=== PATIENT | female | born 1980 | race Hispanic/Latino ===

== ENCOUNTER 2021-05-30 14:21 | Inpatient (IN) | payer SELFPAY ==
[~2021-05-30 14:21] MED LIST: Iopamidol-370 76% 500 ML 1 ML ONE
[2021-05-30] MEDS ORDERED: niCARdipine 20MG In NaCl 20 MG/200 ML BAG ONE (14:30)
[2021-05-30] MEDS ORDERED: Propofol 1,000 MG/100 ML VIAL IV ONE (14:34)
[2021-05-30] MEDS ORDERED: Fentanyl 100 MCG/2 ML VIAL ONE ×2 (14:51→15:01)
[2021-05-30] MEDS ORDERED: diphenhydrAMINE 50 MG/ML VIAL IVP PRN (15:02)
[2021-05-30] MEDS ORDERED: Ondansetron PF 4 MG/2 ML Vial IVP PRN (15:02)
[2021-05-30] MEDS ORDERED: Rocuronium Bromide 10 MG/ML (10ML VIAL) ONE (15:08)
[2021-05-30 16:49] LABS: Base Excess (BEa) -1.9 mEq/L (-2.0 to +3.0); Calcium, Ionized (arterial) 1.05 mmol/L (1.12-1.30); Carboxyhemoglobin (COHb) 0.3 gm% (0.0-3.0); Hemoglobin (Hb) 12.9 g/dL (12.0-16.0); O2 Tension (PaO2), arterial 214.6 mmHg (80.0-100.0); Potassium - ABG Lab 2.83 mmol/L (3.70-5.30); pH, Arterial 7.53 (7.35-7.45)
[2021-05-30 16:51] LABS: ALV-art Gradient 41.725 mmHg (0-20); CO2 Tension 23.1 mmHg (35.0-45.0); Puncture Site RRA
[2021-05-30] MEDS ORDERED: Ventilator Sedation Protocol 1 EACH FS SCH (17:00)
[2021-05-30] MEDS ORDERED: Electrolyte Replacement Protocol 1 EACH IVPB PRN (17:00)
[2021-05-30] MEDS ORDERED: fentaNYL Citrate/PF 2,000 MCG in Sodium Chloride 0.9% 60 ML IV PRN (17:03)
[2021-05-30] MEDS ORDERED: Lorazepam 2 MG/ML VIAL SLOW IVP PRN ×2 (17:04→19:15)
[2021-05-30] MEDS ORDERED: Lorazepam 2 MG/ML VIAL ONE (17:05)
[2021-05-30] MEDS ORDERED: Fentanyl CADD 100 ML ONE (17:06)
[2021-05-30] MEDS ORDERED: Propofol 1,000 MG/100 ML VIAL IV SCH (17:15)
[2021-05-30] MEDS: Sodium Chloride 0.9% 1,000 ML IV SCH (18:00)
[2021-05-30 19:15] LABS: Hemoglobin 12.8 g/dL (12.0-16.0); Mean Corpuscular HGB CONC 35.2 g/dL (32.0-36.0); Mean Corpuscular Hemoglobin 31.1 pg (27.0-31.0); Mean Corpuscular Volume 88.4 fL (78.0-98.0); Mean Platelet Volume 10.3 fL (7.4-10.4); Platelet Count 143 thou/uL (130-400); RBC Distribution Width 12.6 % (11.5-14.5); Red Blood Cell (RBC) Count 4.11 mill/uL (4.20-5.40); White Blood Cell (WBC) Count 23.6 thou/uL (4.8-10.8)
[2021-05-30] MEDS ORDERED: Fentanyl CADD 100 ML IV SCH (19:15)
[2021-05-30] MEDS ORDERED: DISCONTINUE PREVIOUS NARCOTIC PAIN MEDICATIONS AND BENZODIAZEPINES FS SCH (19:15)
[2021-05-30] MEDS ORDERED: Fentanyl BOLUS 250 ML IVPB PRN (19:15)
[2021-05-30] MEDS ORDERED: Morphine 2 MG/ML VIAL SLOW IVP PRN (19:15)
[2021-05-30] MEDS ORDERED: Propofol BOLUS 1,000 MG/100 ML VIAL IV PRN (19:15)
[2021-05-30] MEDS ORDERED: Morphine 4 MG/ML VIAL SLOW IVP PRN (19:16)
[2021-05-30 19:26] LABS: PTT 25.3 sec (22.9-36.1); Prothrombin Time 13.4 sec (12.0-14.7)
[2021-05-30 19:29] LABS: Band 16 % (5-11); Lymphocytes 6 % (21-51); MDiff Complete? YES; Monocytes 14 % (0-10); Neutrophil 64 % (42-75); Platelet Morphology Comment Appears Adequate; RBC Morphology Normal
[2021-05-30] MEDS ORDERED: Aminocaproic Acid 5 GM in Sodium Chloride 0.9% 250 ML 250 ML IV SCH (19:30)
[2021-05-30] MEDS ORDERED: niCARdipine 25 MG in Sodium Chloride 0.9% 250 ML 250 ML IVPB SCH (19:30)
[2021-05-30 19:31] LABS: ALT (SGPT) 21 U/L (8-55); AST (SGOT) 26 U/L (5-34); Albumin 4.3 g/dL (3.5-5.0); Alkaline Phosphatase 70 U/L (40-110); Anion Gap 18 mmol/L (10-20); BUN (Urea Nitrogen) 7 mg/dL (7.0-18.7); Bilirubin, Total 0.7 mg/dL (0.2-1.2); Calc. Creatinine Clearance 123 mL/min (70-130); Calcium 8.8 mg/dL (7.8-10.44); Carbon Dioxide 18 mmol/L (22-29); Chloride 104 mmol/L (98-107); Globulin 2.9 g/dL (2.4-3.5); Glucose 136 mg/dL (70-105); Potassium 3.7 mmol/L (3.5-5.1); Protein, Total 7.2 g/dL (6.0-8.3); Sodium 136 mmol/L (136-145)
[2021-05-30] MEDS: Famotidine/PF 20 mg/2ml Vial SLOW IVP SCH (20:15)
[2021-05-30] MEDS: Propofol 1,000 MG/100 ML VIAL IV PRN (20:32)
[2021-05-30] MEDS: niMODipine 30 MG CAP PO SCH (20:33)
[2021-05-30] MEDS: Aminocaproic Acid 5 GM in Sodium Chloride 0.9% 250 ML 250 ML IV SCH (23:07)
[2021-05-31] MEDS: niMODipine 30 MG CAP PO SCH ×3 (00:50→08:42)
[2021-05-31] MEDS: Propofol 1,000 MG/100 ML VIAL IV PRN ×2 (02:01→08:41)
[2021-05-31] MEDS: Aminocaproic Acid 5 GM in Sodium Chloride 0.9% 250 ML 250 ML IV SCH ×2 (03:50→08:41)
[2021-05-31] MEDS: Sodium Chloride 0.9% 1,000 ML IV SCH (04:10)
[2021-05-31 04:24] LABS: Phosphorus 2.8 mg/dL (2.3-4.7)
[2021-05-31 04:25] LABS: Hemoglobin 11.4 g/dL (12.0-16.0); Mean Corpuscular HGB CONC 35.3 g/dL (32.0-36.0); Mean Corpuscular Hemoglobin 31.3 pg (27.0-31.0); Mean Corpuscular Volume 88.5 fL (78.0-98.0); Platelet Count 128 thou/uL (130-400); RBC Distribution Width 12.7 % (11.5-14.5); Red Blood Cell (RBC) Count 3.64 mill/uL (4.20-5.40); White Blood Cell (WBC) Count 15.4 thou/uL (4.8-10.8)
[2021-05-31 04:27] LABS: ALT (SGPT) 17 U/L (8-55); AST (SGOT) 18 U/L (5-34); Albumin 3.7 g/dL (3.5-5.0); Alkaline Phosphatase 62 U/L (40-110); Anion Gap 15 mmol/L (10-20); BUN (Urea Nitrogen) 6 mg/dL (7.0-18.7); Bilirubin, Total 0.7 mg/dL (0.2-1.2); Calc. Creatinine Clearance 125 mL/min (70-130); Calcium 7.9 mg/dL (7.8-10.44); Carbon Dioxide 20 mmol/L (22-29); Chloride 100 mmol/L (98-107); Globulin 2.5 g/dL (2.4-3.5); Glucose 142 mg/dL (70-105); Magnesium 1.5 mg/dL (1.6-2.6); Potassium 3.9 mmol/L (3.5-5.1); Protein, Total 6.2 g/dL (6.0-8.3); Sodium 131 mmol/L (136-145)
[2021-05-31 05:01] LABS: Band 13 % (5-11); Lymphocytes 6 % (21-51); MDiff Complete? YES; Monocytes 5 % (0-10); Neutrophil 76 % (42-75)
[2021-05-31] MEDS ORDERED: Magnesium 2 GM/50 ML 2 GM in Premix Bag 1 BAG IVPB SCH (05:15)
[2021-05-31 05:18] VITALS: BMI 25.5
[2021-05-31 07:22] VITALS: TEMP 99.5
[2021-05-31 07:49] VITALS: BP 102/58
[2021-05-31 07:56] LABS: Actual Bicarbonate (HCO3a) 23.1 mEq/L (22-28); Base Excess (BEa) -0.7 mEq/L (-2.0 to +3.0); CO2 Tension 34.9 mmHg (35.0-45.0); Calcium, Ionized (arterial) 1.09 mmol/L (1.12-1.30); Carboxyhemoglobin (COHb) 0.3 gm% (0.0-3.0); Potassium - ABG Lab 3.21 mmol/L (3.70-5.30); Puncture Site RRA; pH, Arterial 7.44 (7.35-7.45)
[2021-05-31 07:57] LABS: ALV-art Gradient 75.575 mmHg (0-20)
[2021-05-31] MEDS: Famotidine/PF 20 mg/2ml Vial SLOW IVP SCH (08:27)
[2021-06-02] MEDS ORDERED: FLU VACC QS2021-22(6MOS UP)/PF 60 MCG/0.5 ML SYRINGE IM ONE (09:00)
== END 2021-05-31 11:20 | disposition short-term general hospital (02) | DRG 65 ==
LOC: ERS 14:21 → CCU 15:02
PROVIDERS: ADMIT Neurological Surgery; ATTEND Neurological Surgery
PROC: 0BH17EZ Insertion of Endotracheal Airway into Trachea, Via Natural or Artificial Opening (ICD-10-PCS; principal; 2021-05-30)
PROC: 5A1935Z Respiratory Ventilation, Less than 24 Consecutive Hours (ICD-10-PCS; 2021-05-30)
DX: I60.7 Nontraumatic subarachnoid hemorrhage from unspecified intracranial artery (principal); I67.848 Other cerebrovascular vasospasm and vasoconstriction; Z20.822 Contact with and (suspected) exposure to COVID-19; Z23 Encounter for immunization
CPT/HCPCS: 31500; 36415; 36600; 70496; 71045; 80053; 82805; 83735; 84100; 85007; 85027; 94002; 94003; 95816; 95819; 95957; 96365; 96366; 96375; 99292; J2060; J2704; J3010; J3475; J7050; Q9967; S0017; S0028

== ENCOUNTER 2021-12-04 10:04 | Emergency (ER) | payer SELFPAY ==
[2021-12-04 10:46] LABS: #Eosinphils 0.1 thou/uL (0.0-0.7); #Lymphocytes 0.9 thou/uL (1.20-3.40); #Monocytes 0.6 thou/uL (0.11-0.59); #Neutrophils 5.6 thou/uL (1.40-6.50); %Basophils 0.4 % (0.0-1.0); %Eosinophils 0.8 % (0.0-10.0); %Lymphocytes 12.3 % (21.0-51.0); %Monocytes 7.7 % (0.0-10.0); %Neutrophils 78.8 % (42.0-75.0); Mean Corpuscular HGB CONC 33.1 g/dL (32.0-36.0); Mean Corpuscular Hemoglobin 31.1 pg (27.0-31.0); Mean Platelet Volume 8.9 fL (7.4-10.4); Platelet Count 190 thou/uL (130-400); RBC Distribution Width 12.8 % (11.5-14.5); Red Blood Cell (RBC) Count 4.19 mill/uL (4.20-5.40); White Blood Cell (WBC) Count 7.1 thou/uL (4.8-10.8)
[2021-12-04] MEDS ORDERED: Racepinephrine 2.25% 0.5 ML NEB ONE (10:51)
[2021-12-04] MEDS ORDERED: Sodium Chloride For Inhalation 0.9% 3 ML NEB ONE (10:52)
[2021-12-04 11:04] LABS: ALT (SGPT) 11 U/L (8-55); AST (SGOT) 11 U/L (5-34); Albumin 4.2 g/dL (3.5-5.0); Alkaline Phosphatase 75 U/L (40-110); Anion Gap 12 mmol/L (10-20); BUN (Urea Nitrogen) 7 mg/dL (7.0-18.7); Bilirubin, Total 0.7 mg/dL (0.2-1.2); Calc. Creatinine Clearance 0 mL/min (70-130); Calcium 9.4 mg/dL (7.8-10.44); Carbon Dioxide 27 mmol/L (22-29); Chloride 104 mmol/L (98-107); Globulin 2.6 g/dL (2.4-3.5); Glucose 117 mg/dL (70-105); Protein, Total 6.8 g/dL (6.0-8.3); Sodium 139 mmol/L (136-145)
[2021-12-04] MEDS ORDERED: Dexamethasone 4 MG TAB ONE (11:37)
== END 2021-12-04 11:48 | disposition home or self-care (01) ==
LOC: ERS 10:04
DX: R06.1 Stridor (principal); Z86.73 Personal history of transient ischemic attack (TIA), and cerebral infarction without residual deficits
CPT/HCPCS: 36415; 70360; 71045; 80053; 83880; 84484; 85025; 93005; 94640; J8540